=== PATIENT | male | born 1975 | race African-American/Black ===

== ENCOUNTER 2018-09-15 21:20 | Emergency (ER) | payer OTHER ==
[~2018-09-15] VITALS: Ht 175.3 cm; Wt 90.7 kg
[2018-09-15 22:03] VITALS: BP 138/96
== END 2018-09-15 22:15 | disposition home or self-care (01) ==
LOC: ER 21:20
DX: M54.12 Radiculopathy, cervical region (principal); F17.210 Nicotine dependence, cigarettes, uncomplicated; F10.10 Alcohol abuse, uncomplicated